=== PATIENT | male | born 1975 ===

== ENCOUNTER 2022-10-11 09:09 | Outpatient (AMB) | payer OTHER, SELFPAY ==
--- NOTE | 2022-10-11 09:10 | MHC.OFFVIS ---
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 Lepe. He has a past medical history of hypertension. He presents to the office today as a new patient for question of infertility issues. Patient reports over the last 6-9 months he has been trying to conceive with his partner who is 35 years old. He reports partner to be having infertility workup early next week. He reports having had 2 children however this was with his first partner. His children are 9 and 12 years old. When asked he reports to be smoking recreational marijuana however has since limited this while attempting to conceive. He denies any other urological issues or concerns at this time. Discussed at length weight loss, healthy eating habits, daily activity with brisk walking daily, and adequate sleep can assist with infertility as well as overall health and well being. In office urinalysis results reviewed with the patient today. He denies any previous illness or trauma to the testicles in the past. He denies any issues with his urination. He is happy with his current voiding parameters. [facility] Medical History Hypertension Review of Systems Const All systems reviewed & are unremarkable except as noted in HPI and below Reports no additional complaints Eyes Reports no additional complaints ENT Reports no additional complaints Card Reports no additional complaints Resp Reports no additional complaints GI Reports no additional complaints Reports as per HPI Musc Reports no additional complaints Neuro Reports no additional complaints Psych Reports no additional complaints Endo Reports no additional complaints Chris/Lymph Reports no additional complaints Aller/Immun Reports no additional complaints Physical Exam Const General: cooperative, healthy appearing, comfortable, no acute distress, well developed, alert and awake Nutritional Appearance: overweight Orientation/consciousness: patient oriented x3 Limitations: no limitations HEENT Head: Yes normal to inspection, Yes normocephalic and Yes atraumatic Ears: hearing grossly normal bilaterally Eyes General: appearance normal, both eyes and all related structures Neck Neck: Yes normal visual inspection and Yes trachea midline Chest Chest palpation & inspection: normal inspection of the chest Resp Effort & Inspection: normal respiratory effort and able to speak in complete sentences Cardio Rate: regular rate GI Inspection: Yes normal to inspection General: Yes no CVA tenderness Back/Spine/Pelvis Back: no CVA tenderness Skin General skin exam: no rashes or lesions noted Neuro General: patient oriented x3 Extrem General: Yes normal to inspection Psych Appearance: grossly normal and well kempt Mental Status: mental status grossly normal Speech and movement: Normal speech and movement present and Clear speech present Affect: normal affect Attitude: cooperative Thought process: Normal thought process present Thought content: Normal thought content present Insight: Fair insight present (Psych) Judgement: Fair judgement present (Psych) Results AMB Urinalysis, Automated UA Leukoctes 0 Jairo/uL Last Edit by [employer] on 10/11/22 09:30 UA Nitrite Negative Last Edit by [employer] on 10/11/22 09:30 UA Urobilinogen 0.2 mg/dL Last Edit by [employer] on 10/11/22 09:30 UA Protein 15 mg/dL Last Edit by [employer] on 10/11/22 09:30 UA pH 6.0 Last Edit by [employer] on 10/11/22 09:30 UA Blood 10 Kana/uL Last Edit by [employer] on 10/11/22 09:30 UA Specific [place] 1.030 Last Edit by [employer] on 10/11/22 09:30 UA Ketone Negative Last Edit by [employer] on 10/11/22 09:30 UA Bilirubin 0 mg/dL Last Edit by [employer] on 10/11/22 09:30 UA Glucose 0 mg/dL Last Edit by [employer] on 10/11/22 09:30 Results Reviewed Results Reviewed: Laboratory Last Values Urine pH (Auto) 6.0 10/11/22 09:20 Specific [place] (Auto) 1.030 10/11/22 09:20 Urine Protein (Auto) 15 mg/dL 10/11/22 09:20 Glucose (UA)(Auto) 0 mg/dL 10/11/22 09:20 Urine Ketones (Auto) Negative 10/11/22 09:20 Urine Blood (Auto) 10 Kana/uL 10/11/22 09:20 Urine Nitrite (Auto) Negative 10/11/22 09:20 Urine Bilirubin (Auto) 0 mg/dL 10/11/22 09:20 Urine Urobilinogen (Auto) 0.2 mg/dL 10/11/22 09:20 Leukocyte Esterase (Auto) 0 Jairo/uL 10/11/22 09:20 Assessment & Plan Assessment & Plan (1) Infertility counseling: Code(s): Z31.69 - Encounter for other general counseling and advice on procreation Plan In office urinalysis results reviewed with the patient today. Discussed, educated, and stressed the importance of weight loss, adequate sleep, avoiding alcohol and or or illicit drug use. Discussed at length potential causes for infertility. Will obtain estradiol, FSH, LH, prolactin, SHBG, and testosterone for further assessment evaluation; discussed obtaining labs 2 hours upon wakening. Patient denies any urinary issues or concerns at this time. He is happy with his current voiding parameters. Discussed possible Pentoxifylline and vitamin-D. Discussed bringing in semen sample at next follow up. Follow-up in 1 month with labs to be completed prior and semen sample to be brought in; or sooner with any issues, concerns, and or questions. Orders: Orders Estradiol Ultra Sensitive Today Z31.69 - Encounter for other general counseling and advice on procreation Follicle Stimulating Hormone Today Z31.69 - Encounter for other general counseling and advice on procreation Lutenizing Hormone Today Z31.69 - Encounter for other general counseling and advice on procreation Prolactin Today Z31.69 - Encounter for other general counseling and advice on procreation Sex Hormone Binding Globulin Today Z31.69 - Encounter for other general counseling and advice on procreation Testosterone, Free/Total Today Z31.69 - Encounter for other general counseling and advice on procreation AMB Urinalysis Automated Today Z13.9 - Encounter for screening, unspecified Patient Instructions: The patient had an opportunity to ask questions regarding the treatment plan. All questions were answered. Physical exam, labs, and imaging were discussed and reviewed in detail. As well as risks, benefits, and discussion of treatment choices. No major barriers to understanding were identified. The patient expressed understanding and agreement with the above treatment plan. The patient was made aware they should contact our office by phone for worsening of their current condition, the appearance of new symptoms, or with any questions or concerns. Compliance is encouraged with any medications and follow up testing that is ordered. It is a privilege to be allowed the opportunity to participate in? your urological care.? Again, if you have any questions or concerns If you have any questions or concerns please do not hesitate to contact me. The office is [phone]. This note is constructed using voice recognition software. While every effort has been made to ensure accuracy net developer software engineer c errors may have been included. Yours sincerely, EREN Rolon Coding Level of Care Code New Pt Level 3 (14766) Diagnoses Infertility counseling Z31.69
== END 2022-10-11 09:41 | disposition home or self-care (01) ==
PROVIDERS: PCP Physician Assistant Medical; Visit Provider Nurse Practitioner Family
DX: Z31.69 Encounter for other general counseling and advice on procreation (principal)
CPT/HCPCS: 99203

== ENCOUNTER → 2022-10-11 09:09 | Outpatient (BNVA) | payer OTHER, SELFPAY | PROVIDERS: PCP Physician Assistant Medical; Visit Provider Nurse Practitioner Family | DX: Z31.69 Encounter for other general counseling and advice on procreation (principal) | CPT/HCPCS: 99202 ==

== ENCOUNTER 2022-11-07 10:27 | Outpatient (AMB) | payer OTHER, SELFPAY ==
--- NOTE | 2022-11-07 10:43 | A.OFFVIS_ITS ---
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 Lepe. He has a past medical history of hypertension. He presents to the office today for a follow up. Of note, patient was seen approximately one month ago as a new patient for question of infertility issues at which time labs were ordered and the patient was educated to bring semen sample to office for further assessment and evaluation. These results were reviewed with the patient today. FSH--13.0 LH-- 6.9 Estradiol--41 Testosterone total--242 Testosterone free--42.0 Testosterone bioavailable--88.1 SHB--21 Albumin--4.6 Prolactin--10.7 Semen analysis reviewed under microscope today no sperm noted. Discussed obtaining further semen analysis through [facility] lab for further assessment and evaluation. Discussed trial of Pentoxifylline, vitamin-E, and Clomiphene. Patient reports over the last 6-9 months he has been trying to conceive with his partner who is 35 years old. He reports partner has also started infertility workup through [facility] infertility. He reports having had 2 children however this was with his first partner. His children are 9 and 12 years old. When asked he reports to be smoking recreational marijuana however has since limited this while attempting to conceive. He denies any other urological issues or concerns at this time. Discussed at length weight loss, healthy eating habits, daily activity with brisk walking daily, and adequate sleep can assist with infertility as well as overall health and well being. He denies any previous illness or trauma to the testicles in the past. He denies any issues with his urination. He is happy with his current voiding parameters. [facility] Medical History Hypertension Surgical History (Updated 11/07/22 @ 10:52 by JOSEFINA Arce) No pertinent past surgical history Family History (Updated 11/07/22 @ 10:51 by JOSEFINA Arce) Father No problems noted. Mother No problems noted. Paternal Grandfather Parkinson disease Myocardial disease Dementia Paternal Grandmother Myocardial disease Maternal Grandfather AA (alcohol abuse) Malignant tumor of pharynx Depression Social History (Updated 11/07/22 @ 10:47 by JOSEFINA Arce) Alcohol intake: current Alcohol intake frequency: holidays/special occasions only Patient Tobacco Use Status: Never used Tobacco Review of Systems Const All systems reviewed & are unremarkable except as noted in HPI and below Reports no additional complaints Eyes Reports no additional complaints ENT Reports no additional complaints Card Reports no additional complaints Resp Reports no additional complaints GI Reports no additional complaints Reports as per HPI Musc Reports no additional complaints Neuro Reports no additional complaints Psych Reports no additional complaints Endo Reports no additional complaints Chris/Lymph Reports no additional complaints Aller/Immun Reports no additional complaints Physical Exam Const General: cooperative, healthy appearing, comfortable, no acute distress, well developed, alert and awake Nutritional Appearance: overweight Orientation/consciousness: patient oriented x3 Limitations: no limitations HEENT Head: Yes normal to inspection, Yes normocephalic and Yes atraumatic Ears: hearing grossly normal bilaterally Eyes General: appearance normal, both eyes and all related structures Neck Neck: Yes normal visual inspection and Yes trachea midline Chest Chest palpation & inspection: normal inspection of the chest Resp Effort & Inspection: normal respiratory effort and able to speak in complete sentences Cardio Rate: regular rate GI Inspection: Yes normal to inspection General: Yes no CVA tenderness Back/Spine/Pelvis Back: no CVA tenderness Skin General skin exam: no rashes or lesions noted Neuro General: patient oriented x3 Extrem General: Yes normal to inspection Psych Appearance: grossly normal and well kempt Mental Status: mental status grossly normal Speech and movement: Normal speech and movement present and Clear speech present Affect: normal affect Attitude: cooperative Thought process: Normal thought process present Thought content: Normal thought content present Insight: Fair insight present (Psych) Judgement: Fair judgement present (Psych) Assessment & Plan Assessment & Plan (1) Infertility counseling: Code(s): Z31.69 - Encounter for other general counseling and advice on procreation (2) Hypogonadism in male: Code(s): E29.1 - Testicular hypofunction (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 Sperm analysis via microscope today; results reviewed with the patient today Discussed trial of Pentoxifylline, vitamin-E, and Clomiphene; discussed risks versus benefit Discussed obtaining semen analysis now and then in 3 months after trail of Pentoxifylline, vitamin-E, and Clomiphene; requisition and instructions provided. Discussed, educated, and stressed the importance of weight loss, adequate sleep, avoiding alcohol and or or illicit drug use. Discussed at length potential causes for infertility.? Patient denies any urinary issues or concerns at this time. He is happy with his current voiding parameters.? Follow up in [address] Luz and with semen analysis to be completed through [facility] as discussed; or sooner with any issues, concerns, and or questions. Medications: New clomiphene citrate [facility] [id number] 50 mg PO DAILY 90 days 90 tabs 0RF E29.1 - Testicular hypofunction, R79.89 - Other specified abnormal findings of blood chemistry, Z31.69 - Encounter for other general counseling and advice on procreation Coding Level of Care Code Est Pt Level 4 (34019) Diagnoses Infertility counseling Z31. Hypogonadism in male E29.1 Azoospermatism N46.01
== END 2022-11-07 11:26 | disposition home or self-care (01) ==
PROVIDERS: PCP Physician Assistant Medical; Visit Provider Nurse Practitioner Family
DX: Z31.69 Encounter for other general counseling and advice on procreation (principal); N46.01 Organic azoospermia
CPT/HCPCS: 99214

== ENCOUNTER → 2022-11-07 10:27 | Outpatient (BNVA) | payer OTHER, SELFPAY | PROVIDERS: PCP Physician Assistant Medical; Visit Provider Nurse Practitioner Family | DX: Z31.69 Encounter for other general counseling and advice on procreation (principal); N46.01 Organic azoospermia; E29.1 Testicular hypofunction | CPT/HCPCS: 99212 ==

== ENCOUNTER 2023-03-06 08:56 | Outpatient (AMB) | payer OTHER, SELFPAY ==
--- NOTE | 2023-03-06 08:57 | MHC.OFFVIS ---
Intake Intake Visit Reasons: 3m follow up(Semen Analysis) Intake Note: Patient is present for semen analysis Allergies latex Allergy (Verified 11/13/22 22:30) Rash Medication List - Last Reconciled 03/06/23 by James Luz MD clomiphene citrate 50 mg PO DAILY 90 days NS lisinopril 10 mg PO DAILY pentoxifylline ER 400 mg PO BID 90 days vitamin E (dl, acetate) 450 mg PO DAILY 30 days HPI HPI Comments History of Present Illness Details Petros is a pleasant male. He is a patient Dr. Lepe. He seen for the following urologic conditions - male infertility Simple sperm analysis in office today. More than 3 sperm seen per high-powered field. Sperm Slow. But have returned Continue with current medications 6 month follow-up transrectal ultrasound for ejaculatory duct obstruction Male infertility Prior children from prior relationships x2 Current partner 35 Previously reports smoking recreational marijuana and alcohol these have been suspended Current therapy clomiphene 50 mg daily, pentoxifylline, vitamin E Baseline labs - FSH 13 (over 7), Estradiol 41 TT 242 Baseline semen analysis - low volume 1.5 cc, pH 7.2, no sperm seen PFSH Medical History Hypertension Surgical History (Updated 11/07/22 @ 10:52 by JOSEFINA Arce) No pertinent past surgical history Family History (Updated 11/07/22 @ 10:51 by JOSEFINA Arce) Father No problems noted. Mother No problems noted. Paternal Grandfather Parkinson disease Myocardial disease Dementia Paternal Grandmother Myocardial disease Maternal Grandfather AA (alcohol abuse) Malignant tumor of pharynx Depression Social History (Updated 11/07/22 @ 10:47 by JOSEFINA Arce) Alcohol intake: current Alcohol intake frequency: holidays/special occasions only Patient Tobacco Use Status: Never used Tobacco Review of Systems Const Denies chills and Denies fever(s) Card Reports no additional complaints and Denies syncope Resp Denies cough GI Denies abdominal pain and Denies heartburn Reports as per HPI and Denies change in libido Neuro Denies syncope Psych Denies change in libido Endo Denies change in libido Physical Exam Const General: cooperative, healthy appearing, comfortable and no acute distress Orientation/consciousness: patient oriented x3 HEENT Face and sinus: Yes normal facial exam Mouth: moist mucous membranes Neck Neck: Yes normal visual inspection, Yes full ROM and Yes trachea midline Chest Chest palpation & inspection: normal inspection of the chest Resp Effort & Inspection: normal respiratory effort, able to speak in complete sentences and no respiratory distress GI Inspection: Yes normal to inspection Back/Spine/Pelvis Cervical Spine: normal cervical lordosis Thoracic/Lumbar Spine: thoracic and lumbar spine normal to inspection Skin General skin exam: no rashes or lesions noted Neuro General: patient oriented x3, gait normal, tone normal and moves all extremities Extrem General: Yes normal to inspection and Yes capillary refill normal Assessment & Plan Assessment & Plan (1) Hypogonadism in male: Code(s): E29.1 - Testicular hypofunction (2) 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 Plan Six month follow-up imaging Orders: Orders Testosterone, Total 6 Months E29.1 - Testicular hypofunction US biopsy prostate 6 Months 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 Medications: Changed From vitamin E (dl, acetate) 450 mg PO DAILY 30 days 30 caps 0RF E29.1 - Testicular hypofunction To vitamin E (dl, acetate) 450 mg PO DAILY 90 caps 1RF 90 days E29.1 - Testicular hypofunction Refilled pentoxifylline ER administer with meals 400 mg PO BID 180 tabs 1RF 90 days E29.1 - Testicular hypofunction clomiphene citrate 50 mg PO DAILY 90 tabs 1RF 90 days NS E29.1 - Testicular hypofunction, R79.89 - Other specified abnormal findings of blood chemistry, Z31.69 - Encounter for other general counseling and advice on procreation Patient Instructions: Imaging studies, laboratory and physical exam results were discussed and reviewed in detail. No major barriers to patient understanding were identified. An opportunity to ask questions regarding the treatment plan was provided. All questions were answered. The patient expressed understanding and agreement with the above treatment plan. The patient is aware they should contact our office by phone for worsening of their current condition or the appearance of new urologic symptoms. Compliance is encouraged with any medications and followup testing that is ordered. It is a privilege to participate in the urologic care of your patient. If you have any questions or concerns regarding treatment for the above conditions, or other urologic issues, please do not hesitate to contact me. The office telephone contact is [phone]. This note is constructed using voice recognition software. While every effort has been made to ensure accuracy steel inspector errors may have been included. Yours sincerely, Dr James Luz MD, [facility] - Urology Providers of Expert, Compassionate Care for the Genitourinary System Coding Level of Care Code Est Pt Level 4 (94345) Diagnoses Hypogonadism in male E29.1 Azoospermatism N46.01
== END 2023-03-06 09:28 | disposition home or self-care (01) ==
PROVIDERS: PCP Physician Assistant Medical; Visit Provider Urology
DX: E29.1 Testicular hypofunction (principal)
CPT/HCPCS: 99214

== ENCOUNTER → 2023-03-06 08:56 | Outpatient (BNVA) | payer OTHER, SELFPAY | PROVIDERS: PCP Physician Assistant Medical; Visit Provider Urology | DX: E29.1 Testicular hypofunction (principal); N46.01 Organic azoospermia | CPT/HCPCS: 99212 ==

== ENCOUNTER → 2023-09-07 09:03 | Outpatient (BNVA) | payer OTHER, SELFPAY | PROVIDERS: PCP Physician Assistant Medical; Visit Provider Urology | DX: N46.01 Organic azoospermia (principal); E29.1 Testicular hypofunction | CPT/HCPCS: 99212 ==

== ENCOUNTER 2023-09-07 09:06 | Outpatient (AMB) | payer OTHER, SELFPAY ==
--- NOTE | 2023-09-07 09:09 | A.OFFVIS_ITS ---
Intake Visit Reasons: 6M Follow Up(Issue with US) Intake Note: Patient is Present for Follow Up Semen analysis Urology Medication: Pentoxifylline, Vitamin E, Clomiphene Antibiotic Allergies:None Blood Thinners:None Patient has stopped both Vitamin E and Clomiphene Allergies latex Allergy (Verified 09/07/23 09:10) Rash Medication List - Last Reconciled 09/07/23 by James Luz MD clomiphene citrate 50 mg PO DAILY 90 days NS lisinopril 10 mg PO DAILY pentoxifylline ER 400 mg PO BID 90 days vitamin E (dl, acetate) 450 mg PO DAILY 90 days HPI Comments Details: Petros is a pleasant male. He is a patient Dr. Lepe. He seen for the following urologic conditions - male infertility Current simple semen analysis - off stimulatory medications, no sperm seen Prior Simple semen examination. More than 3 sperm seen per high-powered field. Sperm Slow. 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 Mother No problems noted. Paternal Grandfather Parkinson disease Myocardial disease Dementia Paternal Grandmother Myocardial disease Maternal Grandfather AA (alcohol abuse) Malignant tumor of pharynx Depression Social History Alcohol intake: current Alcohol intake frequency: holidays/special occasions only Patient Tobacco Use Status: Never used Tobacco Review of Systems Const Denies chills and Denies fever(s) Card Reports no additional complaints and Denies syncope Resp Denies cough GI Denies abdominal pain and Denies heartburn Reports as per HPI and Denies change in libido Neuro Denies syncope Psych Denies change in libido Endo Denies change in libido Physical Exam Const General: cooperative, healthy appearing, comfortable and no acute distress Orientation/consciousness: patient oriented x3 HEENT Face and sinus: Yes normal facial exam Mouth: moist mucous membranes Neck Neck: Yes normal visual inspection, Yes full ROM and Yes trachea midline Chest Chest palpation & inspection: normal inspection of the chest Resp Effort & Inspection: normal respiratory effort, able to speak in complete sentences and no respiratory distress GI Inspection: Yes normal to inspection Back/Spine/Pelvis Cervical Spine: normal cervical lordosis Thoracic/Lumbar Spine: thoracic and lumbar spine normal to inspection Skin General skin exam: no rashes or lesions noted Neuro General: patient oriented x3, gait normal, tone normal and moves all extremities Extrem General: Yes normal to inspection and Yes capillary refill normal Assessment & Plan Assessment & Plan (1) 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 Category: Medical (2) Hypogonadism in male: Code(s): E29.1 - Testicular hypofunction Category: Medical Plan Referral urology and fertility subspecialty Restart antioxidant medications Orders: Referrals Urology Referral 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 No major barriers to patient understanding were identified. An opportunity to ask questions regarding the treatment plan was provided. All questions were answered. The patient expressed understanding and agreement with the above treatment plan. The patient is aware they should contact our office by phone for worsening of their current condition or the appearance of new urologic symptoms. Compliance is encouraged with any medications and followup testing that is ordered. It is a privilege to participate in the urologic care of your patient. If you have any questions or concerns regarding treatment for the above conditions, or other urologic issues, please do not hesitate to contact me. The office telephone contact is [phone]. This note is constructed using voice recognition software. While every effort has been made to ensure accuracy stone hand errors may have been included. Yours sincerely, Dr James Luz MD, [facility] - Urology Providers of Expert, Compassionate Care for the Genitourinary System Coding Level of Care Code Est Pt Level 4 (44645) Diagnoses Azoospermatism N46.01 Hypogonadism in male E29.1
== END 2023-09-07 09:27 | disposition home or self-care (01) ==
PROVIDERS: PCP Physician Assistant Medical; Visit Provider Urology
DX: N46.01 Organic azoospermia (principal); E29.1 Testicular hypofunction
CPT/HCPCS: 99214